=== PATIENT | male | born 1975 | race Caucasian/White ===

== ENCOUNTER 2019-05-11 09:59 | Emergency (ER) | payer BC, SELFPAY ==
--- NOTE | 2019-05-11 10:35 | ERPHSYRPT ---
- History of Present Illness Time Seen by Provider: 05/11/19 10:33 Source: patient, family Exam Limitations: no limitations Patient Subjective Stated Complaint: states woke up this am with left shoulder and arm discomfort. also states is having numbness in 4th and 5th digit left hand. states this happened also last labor day weekend after he thought he had slept on it wrong. took aleve without relief. does state if he raises his arm over his head it does give him some relief. also states has been having high blood pressure readings for some time now but was trying alternatives to meds to try to lower it. Triage Nursing Assessment: ambulated to room per self. skin w/d, color normal, resp easy. denies any chest pain or cardiac history. good radial pulse left arm. arm is normal color. w/d, and good cap refill. Physician History: Mr Meyer is a 43 years old male came to ER states taht he woke up this am with left shoulder and arm discomfort. also states is having numbness in 4th and 5th digit left hand. states this happened also last labor day weekend after he thought he had slept on it wrong. took aleve without relief. does state if he raises his arm over his head it does give him some relief. also states has been having high blood pressure readings for some time now but was trying alternatives to meds to try to lower it. Timing/Duration: today Severity: moderate Associated Symptoms: denies symptoms Allergies/Adverse Reactions: NKA Allergy (Verified 05/11/19 10:16) Home Medications: Testosterone Cypionate 1.5 ml IM UD 10/05/15 [History] Hx Tetanus, Diphtheria Vaccination/Date Given: Yes Hx Influenza Vaccination/Date Given: No Hx Pneumococcal Vaccination/Date Given: No - Review of Systems Constitutional: No Fever, No Chills Eyes: No Symptoms Ears, Nose, & Throat: No Symptoms Respiratory: No Cough, No Dyspnea Cardiac: No Chest Pain, No Edema, No Syncope Abdominal/Gastrointestinal: No Abdominal Pain, No Nausea, No Vomiting, No Diarrhea Genitourinary Symptoms: No Dysuria Musculoskeletal: Neck Pain, No Back Pain, No Fall Skin: No Rash Neurological: No Dizziness, No Focal Weakness, No Sensory Changes Psychological: No Symptoms Endocrine: No Symptoms All Other Systems: Reviewed and Negative - Past Medical History Pertinent Past Medical History: Yes Neurological History: No Pertinent History ENT History: No Pertinent History Cardiac History: No Pertinent History Respiratory History: No Pertinent History Endocrine Medical History: No Pertinent History Musculoskeletal History: Fractures GI Medical History: Hernia History: No Pertinent History Psycho-Social History: No Pertinent History Male Reproductive Disorders: No Pertinent History, Other Other Medical History: fracture right arm 04/2015, partial fracture left collar bone as child, has inguinal hernia to right side. 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 - Past Surgical History Past Surgical History: Yes Neuro Surgical History: No Pertinent History Cardiac: No Pertinent History Respiratory: No Pertinent History Gastrointestinal: Hernia Repair Genitourinary: No Pertinent History Musculoskeletal: Other Male Surgical History: No Pertinent History Other Surgical History: surgery to right arm from fracture in 04/2015 - Social History Smoking Status: Never smoker Exposure to second hand smoke: Yes Drug Use: none Patient Lives Alone: No - Nursing Vital Signs Nursing Vital Signs: Initial Vital Signs Temperature 98.4 F 05/11/19 10:03 Pulse Rate 85 05/11/19 10:03 Respiratory Rate 16 05/11/19 10:03 Blood Pressure 172/109 05/11/19 10:03 O2 Sat by Pulse Oximetry 99 05/11/19 10:03 Pain Scale Pain Intensity 7 - Physical Exam General Appearance: no apparent distress, alert Eye Exam: PERRL/EOMI, eyes nml inspection Ears, Nose, Throat Exam: normal ENT inspection, TMs normal, pharynx normal, moist mucous membranes Neck Exam: normal inspection, non-tender, supple, full range of motion Respiratory Exam: normal breath sounds, lungs clear, No respiratory distress Cardiovascular Exam: regular rate/rhythm, normal heart sounds, normal peripheral pulses Gastrointestinal/Abdomen Exam: soft, normal bowel sounds, No tenderness, No mass Back Exam: normal inspection, normal range of motion, No CVA tenderness, No vertebral tenderness Extremity Exam: normal inspection, normal range of motion, pelvis stable Neurologic Exam: alert, oriented x 3, cooperative, normal mood/affect, nml cerebellar function, nml station & gait, sensation nml, No motor deficits Skin Exam: normal color, warm, dry, No rash Lymphatic Exam: No adenopathy SpO2: 99 - Course Nursing assessment & vital signs reviewed: Yes EKG Interpreted by Me: Sinus Rhythm - CT Exams Cervical Spine CT Interpretation: Tele-radiologist Report (C6-C7 disc prolapse, see teleradiology report for details-CT scan shows mild dextroscoliosis, vomiting and C6-7 posterior disc bulge with posterior osteophytes with mild central spinal stenosis.) Ordered Tests: Active Orders 24 hr Category Date Time Status EKG-ER Only STAT Care 05/11/19 10:16 Active CERVICAL SPINE WO CONTRAST [CT] Stat Exams 05/11/19 10:16 Taken CBC W DIFF Stat Lab 05/11/19 10:33 Completed CMP Stat Lab 05/11/19 10:33 Completed Erythrocyte Sedimentation Rate Stat Lab 05/11/19 10:33 Completed TROPONIN Stat Lab 05/11/19 10:33 Completed TSH, 3RD Generation Stat Lab 05/11/19 10:33 Completed Medication Summary Generic Name Dose Route Start Last Admin Trade Name Freq PRN Reason Stop Dose Admin Metoprolol Tartrate 50 mg 05/12/19 11:42 Lopressor 50 Mg PO 05/12/19 11:43 STAT ONE Discontinued Medications Generic Name Dose Route Start Last Admin Trade Name Freq PRN Reason Stop Dose Admin Metoprolol Tartrate Confirm 05/11/19 11:39 Lopressor 50 Mg Administered 05/11/19 11:40 Dose 50 mg .ROUTE .[facility] Lab/Rad Data: Laboratory Result Diagrams 05/11/19 10:33 05/11/19 10:33 Laboratory Results 05/11/19 05/11/19 Range/Units 10:33 10:33 WBC 5.8 (4.0-10.5) K/mm3 RBC 5.34 (4.1-5.6) M/mm3 Hgb 16.3 (12.5-18.0) gm/dl Hct 47.5 (42-50) % MCV 89.0 (78-100) fl MCH 30.5 (26-32) pg MCHC 34.3 (32-36) g/dl RDW 13.1 (11.5-14.0) % Plt Count 188 (150-450) K/mm3 MPV 9.5 (6-9.5) fl Gran % 57.6 (36.0-66.0) % Eos # (Auto) 0.16 (0-0.5) Absolute Lymphs (auto) 1.84 (1.0-4.6) Absolute Monos (auto) 0.45 (0.0-1.3) Lymphocytes % 31.7 (24.0-44.0) % Monocytes % 7.7 (0.0-12.0) % Eosinophils % 2.8 (0.00-5.0) % Basophils % 0.2 (0.0-0.4) % Absolute Granulocytes 3.35 (1.4-6.9) Basophils # 0.01 (0-0.4) ESR 1 (0-15) mm/hr Sodium 140 (137-145) mmol/L Potassium 4.4 (3.5-5.1) mmol/L Chloride 103 (98-107) mmol/L Carbon Dioxide 26 (22-30) mmol/L Anion Gap 15.9 H (5-15) MEQ/L BUN 14 (9-20) mg/dL Creatinine 0.89 (0.66-1.25) mg/dL Estimated GFR > 60.0 ML/MIN Glucose 104 (74-106) mg/dL Calcium 9.4 (8.4-10.2) mg/dL Total Bilirubin 0.90 (0.2-1.3) mg/dL AST 41 (17-59) U/L ALT 44 (0-50) U/L Alkaline Phosphatase 45 (38-126) U/L Troponin I < 0.012 (0.000-0.034) ng/mL Serum Total Protein 8.0 (6.3-8.2) g/dL Albumin 4.7 (3.5-5.0) g/dL TSH 3rd Generation 1.960 (0.47-4.68) mIU/L - Progress Progress: unchanged Counseled pt/family regarding: lab results, diagnosis, need for follow-up, rad results - Departure Departure Disposition: Home Clinical Impression: Disorder of intervertebral disc at C6-C7 level with myelopathy, Cervical spondylosis with myelopathy and radiculopathy Hypertension Qualifiers: Hypertension type: essential hypertension Qualified Code(s): I10 - Essential ( primary) hypertension Condition: Stable Critical Care Time: No Referrals: MARILEE STEIN [Primary Care Provider] - Instructions: Spinal Stenosis, Spondylolisthesis (DC), Spondylolysis (DC), Spinal Stenosis (DC), High Blood Pressure in Adults, High Blood Pressure (DC) Additional Instructions: Discharge/Care Plan JACQUELINE MEYER was seen on 05/11/19 in the Emergency Room. The patient was counseled regarding Diagnosis,Lab results, Imaging studies, need for follow up and when to return to the Emergency Room. Prescriptions given: Discharge Note I have spoken with the patient and/or caregivers. I have explained the patient' s condition, diagnosis and treatment plan based on the information available to me at this time. I have answered the patient's and/or caregiver's questions and addressed any concerns. The patient and/or caregivers have as good understanding of the patient's diagnosis, condition and treatment plan as can be expected at this point. The vital signs have been stable. The patient's condition is stable and appropriate for discharge from the emergency department. The patient will pursue further outpatient evaluation with the primary care physician or other designated or consulting physician as outlined in the discharge instructions. The patient and/or caregivers are agreeable to this plan of care and follow-up instructions have been explained in detail. The patient and/or caregivers have received these instruction. The patient/and or caregivers are aware that any significant change in condition or worsening of symptoms should prompt an immediate return to this or the closest emergency department or call 911. JACQUELINE MEYER was seen on 05/11/19 n the Emergency Room. At that time you were treated for an emergent condition, during your visit Laboratory, Radiology and/or other procedures may have been ordered. It is very important that you follow-up with your Primary Care Physician MARILEE STEIN within the next 24-48 hours to review your Emergency Room visit and the final results of testing that was ordered. Some test results such as Urine Cultures, Blood Cultures, and other cultures if ordered will not be finalized for 24-48 hours. If you do not have a Primary Care Provider please call the medical records department at [phone] ext [phone] to obtain a copy of your results or you may sign into our patient portal to obtain these results by visiting us @ [email or web address] and completing the following steps: 1. Click on the Patient Portal link 2. Click the Patient Self Enrollment Link to complete the enrollment form and entering your 3. Once the enrollment form is completed you will receive an email with a temporary ID and password at the email address you provided. 4. Next choose a user name and password. Your user name must be at least 4 characters long and your password must be at least 4 characters long. 5. Choose a security question from the list and provide your answer to the question. If you already have signed into the Health Portal you may access your Health Care Information 06/03 by the following steps: 1. Login to our website @ [email or web address] 2. Enter your original user name and password. FAQS The [facility] Health Portal is an online tool that contains your Lab Results, Radiology Reports, Visit History, Discharge Instructions and Health Summary Lab and Radiology Results will not be available for 72 hours on the portal. The Portal is a secure site, passwords are encryted and URLs are re-written so they cannot be copied and pasted. You and authorized family members are the only ones who can access your Portal. Also there is a timeout feature that protects your information if you leave the Portal page open. If you have technical difficulty please use the Contact Us link on the page this will allow you to submit any questions you have regarding the Portal or you may contact the Medical Record Department at [phone] ext [phone]. Prescriptions: Metoprolol Succinate 50 mg [Toprol Xl 50 MG] 50 mg PO DAILY 30 Days #30 tablet Tizanidine HCl 4 mg [Zanaflex 4 MG] 4 mg PO HS #15 tablet
[2019-05-11 10:38] LABS: Absolute Neutrophil Ct (ANC) 3.35 (1.4-6.9); BASOPHIL % 0.2 % (0.0-0.4); Basophil (Absolute #) 0.01 (0-0.4); Eosinophil % 2.8 % (0.00-5.0); Eosinophil (Absolute #) 0.16 (0-0.5); Hematocrit 47.5 % (42-50); Hemoglobin 16.3 gm/dl (12.5-18.0); Lymphocyte (Absolute #) 1.84 (1.0-4.6); Lymphocytes % 31.7 % (24.0-44.0); Mean Corpuscular Hemoglobin 30.5 pg (26-32); Mean Corpuscular Hgb Concent. 34.3 g/dl (32-36); Mean Platelet Volume 9.5 fl (6-9.5); Monocyte (Absolute #) 0.45 (0.0-1.3); Monocytes % 7.7 % (0.0-12.0); Neutrophil % 57.6 % (36.0-66.0); Platelet Count 188 K/mm3 (150-450); Red Blood Count 5.34 M/mm3 (4.1-5.6); Red Cell Distribution Width 13.1 % (11.5-14.0); White Blood Count 5.8 K/mm3 (4.0-10.5)
[2019-05-11 11:02] LABS: Erythrocyte Sedimentation Rate 1 mm/hr (0-15)
[2019-05-11 11:30] LABS: ALBUMIN 4.7 g/dL (3.5-5.0); ALKALINE PHOSPHATASE 45 U/L (38-126); ANION GAP 15.9 MEQ/L (5-15); BLOOD UREA NITROGEN 14 mg/dL (9-20); CHLORIDE 103 mmol/L (98-107); Calcium 9.4 mg/dL (8.4-10.2); Carbon Dioxide 26 mmol/L (22-30); Creatinine 1 0.89 mg/dL (0.66-1.25); Glucose 104 mg/dL (74-106); Potassium 4.4 mmol/L (3.5-5.1); SGOT/AST 41 U/L (17-59); SGPT/ALT 44 U/L (0-50); SODIUM 140 mmol/L (137-145); TROPONIN < 0.012 ng/mL (0.000-0.034)
[2019-05-11] MEDS ORDERED: Lopressor 50 MG ONE (11:39)
[2019-05-11] MEDS ORDERED: Zanaflex 4 MG PO STA (11:50)
[2019-05-11 12:09] VITALS: BP 136/100; PULSE 78; O2SAT 95
--- NOTE | 2019-05-11 19:36 | XRAY ---
Indication: Neck pain. Cervical nerve impingement syndrome. Multiple contiguous axial images obtained through the cervical spine. Sagittal and coronal reformatted images obtained. Comparison: None Axial images negative for acute fracture, suspicious bony lesions, or spinal canal stenosis. Minimal C4-C7 endplate spurring. Sagittal and coronal reformatted images demonstrates cervical lordotic reversal, positional versus paraspinal spasm. Minimal C4-C7 disc space narrowing. No acute compression fracture, subluxation, or jumped facet. Normal appearing craniocervical junction. Visualized noncontrasted soft tissues including base of the brain and lung apices unremarkable. Impression: 1. Cervical lordotic reversal, positional versus paraspinal spasm. 2. Minimal C4-C7 degenerative changes. Comment: Preliminary interpretation was made by [facility]. No critical discrepancy. CTDI 61.09
[2019-05-12] MEDS ORDERED: Lopressor 50 MG PO ONE (11:42)
== END 2019-05-11 12:33 | disposition home or self-care (01) ==
LOC: ED 09:59
DX: M50.023 Cervical disc disorder at C6-C7 level with myelopathy (principal); M47.12 Other spondylosis with myelopathy, cervical region; M54.12 Radiculopathy, cervical region; I10 Essential (primary) hypertension
CPT/HCPCS: 36000; 36415; 72125; 80053; 84443; 84484; 85025; 85652; 93005; 99284; A9270-GY

== ENCOUNTER 2024-11-14 10:44 | Emergency (ER) | payer BC, SELFPAY ==
[2024-11-14 11:04] VITALS: TEMP 98.4
--- NOTE | 2024-11-14 11:20 | ERPHSYRPT ---
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 They have been asking him to resign and I believe there is an investigation going on. He is notices blood pressure has been up since then. Has been going on for a couple months now. He says he gets nauseated and then goes to the school nurse. She is took his blood pressure today. It was around 170/100. He has been on lisinopril pretty consistently over the past year or 2 and has increased his dose recently it went from 20-30 and then to 40 mg about 2 weeks ago.He is not have any chest pain shortness of breath or signs or symptoms of thyroid or catecholamine issues. His blood pressure issues started at the same time that he was dealing with some pretty significant stressful situations in his life. He has not done any kind of therapy or counseling anything like this. He has been to his doctor and they adjusted his meds.He was also put on Prozac by the school [facility]. Allergies/Adverse Reactions: NKA Allergy (Verified 11/14/24 10:56) Home Medications: Testosterone Cypionate 1.5 ml IM UD 10/05/15 [History] Amlodipine Besylate 10 mg PO DAILY 11/14/24 [History] Fluoxetine HCl 20 mg PO DAILY 11/14/24 [History] lisinopriL [Lisinopril] 40 mg PO DAILY 11/14/24 [History] Hx Tetanus, Diphtheria Vaccination/Date Given: Yes Hx Influenza Vaccination/Date Given: No Hx Pneumococcal Vaccination/Date Given: No Travel Risk - International Travel Have you traveled outside of the country in past 3 weeks: No - Emerging Infectious Disease Are you exhibiting symptoms associated with any current EIDs: No - Review of Systems Constitutional: No Symptoms Eyes: No Symptoms Respiratory: No Symptoms Cardiac: No Symptoms Skin: No Symptoms Neurological: No Symptoms Psychological: Anxiety All Other Systems: Reviewed and Negative - Past Medical History Pertinent Past Medical History: Yes Neurological History: No Pertinent History ENT History: No Pertinent History Cardiac History: No Pertinent History Respiratory History: No Pertinent History Endocrine Medical History: No Pertinent History Musculoskeletal History: Fractures GI Medical History: Hernia History: No Pertinent History Psycho-Social History: No Pertinent History Male Reproductive Disorders: No Pertinent History, Other Other Medical History: fracture right arm 04/2015, partial fracture left collar bone as child, has inguinal hernia to right side. 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 - Past Surgical History Past Surgical History: Yes Neuro Surgical History: No Pertinent History Cardiac: No Pertinent History Respiratory: No Pertinent History Gastrointestinal: Hernia Repair Genitourinary: No Pertinent History Musculoskeletal: Other Male Surgical History: No Pertinent History Other Surgical History: surgery to right arm from fracture in 04/2015 - Social History Smoking Status: Never smoker Exposure to second hand smoke: No Drug Use: none - Social Determinants of Health Will the patient participate in the screening: Yes Do you worry about a steady place to live?: No Do you have any problems with any of the following?: No known problems In the past 12 months,have you had to go without utilities?: No Transportation Issues: No Has anyone in your support network made you feel unsafe?: No Have you or anyone in your house had to go w/o enough food: No - Nursing Vital Signs Nursing Vital Signs: Initial Vital Signs Temperature 98.4 F 11/14/24 10:53 Pulse Rate 87 11/14/24 10:53 Respiratory Rate 7 L 11/14/24 10:53 Blood Pressure 145/91 11/14/24 10:53 O2 Sat by Pulse Oximetry 97 11/14/24 10:53 Pain Scale Pain Intensity 0 - Physical Exam General Appearance: no apparent distress Eye Exam: PERRL/EOMI Respiratory Exam: normal breath sounds, chest tenderness Cardiovascular Exam: regular rate/rhythm, normal heart sounds Gastrointestinal/Abdomen Exam: soft, normal bowel sounds, No tenderness Extremity Exam: normal inspection, normal range of motion Neurologic Exam: alert, oriented x 3 Skin Exam: normal color SpO2: 97 Ordered Tests: Active Orders 24 hr Category Date Time Status EKG-ER Only STAT Care 11/14/24 11:15 Active CHEST 1 VIEW (PORTABLE) Stat Exams 11/14/24 11:15 Completed CBC W DIFF Stat Lab 11/14/24 11:15 Completed CMP Stat Lab 11/14/24 11:15 Completed TROPONIN Q4H Lab 11/14/24 11:15 Completed TROPONIN Q4H Lab 11/14/24 19:15 Ordered TROPONIN Stat Lab 11/14/24 15:15 Ordered TSH, 3RD Generation Stat Lab 11/14/24 11:15 Completed UA W/RFX UR CULTURE Stat Lab 11/14/24 12:58 Completed Lab/Rad Data: Laboratory Result Diagrams 11/14/24 11:15 11/14/24 11:15 Laboratory Results 11/14/24 11/14/24 11/14/24 Range/Units 12:58 11:15 11:15 WBC (4.23-9.07) x10^3/uL RBC (4.63-6.08) x10^6/uL Hgb (13.7-17.5) g/dL Hct (40.1-51.0) % MCV (79.0-92.2) fL MCH (25.7-32.2) pg MCHC (32.3-36.5) g/dL RDW (11.6-14.4) % Plt Count (163-337) x10^3/uL MPV (9.4-12.4) fL Gran % (34.0-67.9) % Immature Gran % (Auto) (0.001-0.429) % Nucleat RBC Rel Count (0.00-0.2) % Eos # (Auto) (0.04-0.54) x10^3/uL Immature Gran # (Auto) (0.001-0.031) x10^3u/L Absolute Lymphs (auto) (1.32-3.57) x10^3/uL Absolute Monos (auto) (0.30-0.82) x10^3/uL Absolute Nucleated RBC (0.00-0.012) x10^3u/L Lymphocytes % (21.8-53.1) % Monocytes % (5.3-12.2) % Eosinophils % (0.8-7.0) % Basophils % (0.2-1.2) % Absolute Granulocytes (1.78-5.38) x10^3/uL Basophils # (0.01-0.08) x10^3/uL Sodium 142 (135-145) mmol/L Potassium 4.4 (3.5-5.1) mmol/L Chloride 105 (98-107) mmol/L Carbon Dioxide 25 (22-30) mmol/L Anion Gap 16.3 H (5-15) MEQ/L BUN 12 (9-20) mg/dL Creatinine 0.84 (0.66-1.25) mg/dL Estimated GFR 107.6 ML/MIN Glucose 102 (74-106) mg/dL Calcium 9.5 (8.4-10.2) mg/dL Total Bilirubin 0.70 (0.2-1.3) mg/dL AST 43 (17-59) U/L ALT 72 H (0-50) U/L Alkaline Phosphatase 56 (38-126) U/L Troponin I Cancelled < 0.012 (0.000-0.033) ng/mL Serum Total Protein 7.5 (6.3-8.2) g/dL Albumin 4.6 (3.5-5.0) g/dL TSH 3rd Generation 1.701 (0.470-4.680) mIU/L Urine Color Yellow (Yellow) Urine Appearance Clear (Clear) Urine pH 6.0 (4.6-8.0) Ur Specific [place] 1.020 (1.005-1.030) Urine Protein Negative (Negative) Urine Glucose (UA) Negative (Negative) mg/dL Urine Ketones Negative (Negative) Urine Blood Negative (Negative) Urine Nitrite Negative (Negative) Urine Bilirubin Negative (Negative) Urine Urobilinogen 0.2 (0.2) mg/dL Ur Leukocyte Esterase Negative (Negative) U Hyaline Cast (Auto) NONE SEEN (0-2) /LPF Urine Microscopic RBC 0-2 (0-5) /HPF Urine Microscopic WBC 0-2 (0-5) /HPF Ur Epithelial Cells None Seen (None Seen) /HPF Urine Bacteria None Seen (None Seen) /HPF Urine Culture Reflexed NO (NO) 11/14/24 Range/Units 11:15 WBC 5.9 (4.23-9.07) x10^3/uL RBC 4.91 (4.63-6.08) x10^6/uL Hgb 14.6 (13.7-17.5) g/dL Hct 42.6 (40.1-51.0) % MCV 86.8 (79.0-92.2) fL MCH 29.7 (25.7-32.2) pg MCHC 34.3 (32.3-36.5) g/dL RDW 12.3 (11.6-14.4) % Plt Count 228 (163-337) x10^3/uL MPV 9.1 L (9.4-12.4) fL Gran % 64.7 (34.0-67.9) % Immature Gran % (Auto) 0.3 (0.001-0.429) % Nucleat RBC Rel Count 0.0 (0.00-0.2) % Eos # (Auto) 0.07 (0.04-0.54) x10^3/uL Immature Gran # (Auto) 0.02 (0.001-0.031) x10^3u/L Absolute Lymphs (auto) 1.59 (1.32-3.57) x10^3/uL Absolute Monos (auto) 0.38 (0.30-0.82) x10^3/uL Absolute Nucleated RBC 0.00 (0.00-0.012) x10^3u/L Lymphocytes % 27.1 (21.8-53.1) % Monocytes % 6.5 (5.3-12.2) % Eosinophils % 1.2 (0.8-7.0) % Basophils % 0.2 (0.2-1.2) % Absolute Granulocytes 3.79 (1.78-5.38) x10^3/uL Basophils # 0.01 (0.01-0.08) x10^3/uL Sodium (135-145) mmol/L Potassium (3.5-5.1) mmol/L Chloride (98-107) mmol/L Carbon Dioxide (22-30) mmol/L Anion Gap (5-15) MEQ/L BUN (9-20) mg/dL Creatinine (0.66-1.25) mg/dL Estimated GFR ML/MIN Glucose (74-106) mg/dL Calcium (8.4-10.2) mg/dL Total Bilirubin (0.2-1.3) mg/dL AST (17-59) U/L ALT (0-50) U/L Alkaline Phosphatase (38-126) U/L Troponin I (0.000-0.033) ng/mL Serum Total Protein (6.3-8.2) g/dL Albumin (3.5-5.0) g/dL TSH 3rd Generation (0.470-4.680) mIU/L Urine Color (Yellow) Urine Appearance (Clear) Urine pH (4.6-8.0) Ur Specific [place] (1.005-1.030) Urine Protein (Negative) Urine Glucose (UA) (Negative) mg/dL Urine Ketones (Negative) Urine Blood (Negative) Urine Nitrite (Negative) Urine Bilirubin (Negative) Urine Urobilinogen (0.2) mg/dL Ur Leukocyte Esterase (Negative) U Hyaline Cast (Auto) (0-2) /LPF Urine Microscopic RBC (0-5) /HPF Urine Microscopic WBC (0-5) /HPF Ur Epithelial Cells (None Seen) /HPF Urine Bacteria (None Seen) /HPF Urine Culture Reflexed (NO) - Progress Progress: improved Progress Note: Patient's D-dimer was not elevated. His troponin was not elevated. His EKG looked good. He has a lot of stress going on in his life with his work it seems like his symptoms get worse when he is at work. He also is overweight. We discussed methods to lose his high blood pressure losing weight is 1 getting to some of his stress and possible even finding a new job would be a good idea. I realize that that is a lot. The family was attentive and seem to be in agreement. At this time I do not think that there is any underlying medical problem I think it is combination of some factors. 11/14/24 15:11 - Departure Departure Disposition: Home Clinical Impression: Hypertension, Stress reaction Condition: Stable Critical Care Time: No Referrals: MARILEE STEIN [Primary Care Provider] - Follow up/PCP as directed Instructions: Malignant Hypertension (DC)
[2024-11-14 11:33] LABS: Absolute Neutrophil Ct (ANC) 3.79 x10^3/uL (1.78-5.38); BASOPHIL % 0.2 % (0.2-1.2); Basophil (Absolute #) 0.01 x10^3/uL (0.01-0.08); Eosinophil % 1.2 % (0.8-7.0); Eosinophil (Absolute #) 0.07 x10^3/uL (0.04-0.54); Hematocrit 42.6 % (40.1-51.0); Hemoglobin 14.6 g/dL (13.7-17.5); IMMATURE GRAN # 0.02 x10^3u/L (0.001-0.031); IMMATURE GRAN % 0.3 % (0.001-0.429); Lymphocyte (Absolute #) 1.59 x10^3/uL (1.32-3.57); Lymphocytes % 27.1 % (21.8-53.1); Mean Cell Volume 86.8 fL (79.0-92.2); Mean Corpuscular Hemoglobin 29.7 pg (25.7-32.2); Mean Corpuscular Hgb Concent. 34.3 g/dL (32.3-36.5); Mean Platelet Volume 9.1 fL (9.4-12.4); Monocyte (Absolute #) 0.38 x10^3/uL (0.30-0.82); Monocytes % 6.5 % (5.3-12.2); Neutrophil % 64.7 % (34.0-67.9); Platelet Count 228 x10^3/uL (163-337); Red Blood Count 4.91 x10^6/uL (4.63-6.08); Red Cell Distribution Width 12.3 % (11.6-14.4); White Blood Count 5.9 x10^3/uL (4.23-9.07)
[2024-11-14 11:34] VITALS: RESP 14
--- NOTE | 2024-11-14 12:07 | XRAY ---
Indication: Hypertension. Comparison: None Portable chest demonstrates normal heart and lungs. Bony thorax intact. No acute findings.
[2024-11-14 12:17] LABS: ALBUMIN 4.6 g/dL (3.5-5.0); ALKALINE PHOSPHATASE 56 U/L (38-126); ANION GAP 16.3 MEQ/L (5-15); BLOOD UREA NITROGEN 12 mg/dL (9-20); CHLORIDE 105 mmol/L (98-107); Calcium 9.5 mg/dL (8.4-10.2); Carbon Dioxide 25 mmol/L (22-30); Creatinine 1 0.84 mg/dL (0.66-1.25); EST GLOMERULAR FILTRATION RATE 107.6 ML/MIN; Glucose 102 mg/dL (74-106); Potassium 4.4 mmol/L (3.5-5.1); SGOT/AST 43 U/L (17-59); SGPT/ALT 72 U/L (0-50); SODIUM 142 mmol/L (135-145); TROPONIN < 0.012 ng/mL (0.000-0.033); TSH, 3RD Generation 1.701 mIU/L (0.470-4.680); Total Protein 7.5 g/dL (6.3-8.2)
[2024-11-14 13:13] LABS: Appearance Clear (Clear); Bacteria None Seen /HPF (None Seen); Bilirubin Negative (Negative); Blood Negative (Negative); Epithelial Cells None Seen /HPF (None Seen); Glucose, Urine Negative (Negative); Hyaline Casts NONE SEEN /LPF (0-2); Ketones Negative (Negative); Leukocyte Esterase Negative (Negative); Nitrite Negative (Negative); Protein,Urine Dip Negative (Negative); RBC 0-2 /HPF (0-5); Urobilinogen 0.2 mg/dL (0.2); WBC 0-2 /HPF (0-5)
[2024-11-14 14:37] VITALS: BP 146/99; PULSE 72
[2024-11-14 15:12] VITALS: O2SAT 97
[2024-11-21 10:10] LABS: Creatinine, Urine 109.7 mg/dL (Not Estab.)
== END 2024-11-14 15:16 | disposition home or self-care (01) ==
LOC: ED 10:44
DX: I10 Essential (primary) hypertension (principal); F43.9 Reaction to severe stress, unspecified; Z79.899 Other long term (current) drug therapy
CPT/HCPCS: 36415; 71045; 80053; 81001; 82384; 82570; 84443; 84484; 85025; 93005; 99284; 99285